=== PATIENT | female | born 1975 | race Two or more races ===

== ENCOUNTER 2020-06-27 00:03 | Emergency (ER) | payer OTHER ==
[~2020-06-27] VITALS: Ht 165.1 cm; Wt 115.7 kg
[2020-06-27] MEDS ORDERED: PEPCID20 MG (00:17)
[2020-06-27] MEDS ORDERED: VOLTAREN100 GM (00:17)
[2020-06-27] MEDS ORDERED: ZOFRAN4 MG ×2 (00:17→00:18)
[2020-06-27] MEDS ORDERED: METFORMIN HCL500 MG (00:17)
[2020-06-27] MEDS ORDERED: NAPROXEN500 MG PO (05:57)
[2020-06-27] MEDS ORDERED: SKELAXIN800 MG PO (05:57)
== END 2020-06-27 06:01 | disposition home or self-care (01) ==
LOC: ER 00:03
DX: M94.0 Chondrocostal junction syndrome [Tietze] (principal); Z20.822 Contact with and (suspected) exposure to COVID-19